=== PATIENT | male | born 1940 | race Caucasian/White ===

== ENCOUNTER 2021-09-13 11:24 | Emergency (ER) | payer MEDICARE, OTHER ==
[~2021-09-13 11:24] MED LIST: ASPIR 8181 MG PO; BROVANA15 MCG/2 M NEB; CERTAGEN1 EACH PO; COMBIVENT RESPIM4 GM NEB; GARLIC1000 MG PO; MAG-OXIDE 400M400 MG PO; PRINIVIL20 MG PO; PULMICORT0.5 MG/2 M NEB; VENTOLIN (2.5 MG/3 M INH
[2021-09-13 12:23] LABS: BASOPHIL 0.4 % (0-2); EOSINOPHIL 0.5 % (0-7); HCT 35.3 % (42.0-52.0); HGB 10.9 g/dl (13.2-18.0); LYMPHOCYTE 13.2 % (15-48); MCH 26.4 pg (25.0-31.0); MCHC 30.9 g/dL (32.0-36.0); MCV 85.5 fL (78.0-100.0); MONOCYTE 9.5 % (0-12); MPV 9.6 fL (6.0-9.5); NEUTROPHIL 75.2 % (41-80); NRBC 0; PLT 269 K/uL (150-400); RBC 4.13 M/uL (4.70-6.00); RDW 12.8 % (11.5-14.0); WBC 7.4 K/uL (4.0-10.5)
[2021-09-13 12:24] LABS: BILIRUBIN NEGATIVE (NEGATIVE); BLOOD NEGATIVE Ery/uL (NEGATIVE); CLARITY CLEAR (CLEAR); COLOR YELLOW (YELLOW); GLUCOSE (U) 1+ mg/dL (NORMAL); LEUKOCYTES NEGATIVE Leu/uL (NEGATIVE); NITRITE NEGATIVE (NEGATIVE); PROTEIN NEGATIVE (NEGATIVE); SPECIFIC GRAVITY >=1.030 (1.001-1.030); UROBILINOGEN 0.2 mg/dL (0.2-1.0); pH 5.5 (5.0-9.0)
[2021-09-13 12:39] LABS: INR 1.15 (0.9-1.2); PROTHROMBIN TIME 14.1 SECONDS (11.8-13.4); PTT 34.2 SECONDS (24.4-34.7)
[2021-09-13 12:54] LABS: ALBUMIN 2.9 g/dL (3.4-5.0); BILIRUBIN - TOTAL 0.4 mg/dL (0.2-1.0); GLOBULIN (CALCULATION) 4.5 g/dL; POTASSIUM 4.8 mmol/L (3.5-5.1); TOTAL PROTEIN 7.4 g/dL (6.4-8.2)
== END 2021-09-13 14:29 | disposition home or self-care (01) ==
LOC: FER 11:24
PROVIDERS: Emergency Medicine; Nurse Practitioner Family
DX: R10.11 Right upper quadrant pain (principal); R11.2 Nausea with vomiting, unspecified; I10 Essential (primary) hypertension; J44.9 Chronic obstructive pulmonary disease, unspecified; Z87.891 Personal history of nicotine dependence; Z79.899 Other long term (current) drug therapy
CPT/HCPCS: 36415; 80053; 81003; 82150; 83690; 85025; 85610; 85730; 99284

== ENCOUNTER → 2021-11-03 | Day surgery (SDC) | payer MEDICARE, OTHER ==
[~2021-11-03] VITALS: Ht 185.4 cm; Wt 88.0 kg
[~2021-11-03] MED LIST changes: +OMEPRAZOLE40 MG PO; +YUPELRI175 MCG/3 INH
== END | disposition home or self-care (01) ==
LOC: FAS 09:49
DX: D12.2 Benign neoplasm of ascending colon (principal); D12.0 Benign neoplasm of cecum; D12.3 Benign neoplasm of transverse colon; D12.5 Benign neoplasm of sigmoid colon; K62.1 Rectal polyp; K63.9 Disease of intestine, unspecified; D17.79 Benign lipomatous neoplasm of other sites; K57.30 Diverticulosis of large intestine without perforation or abscess without bleeding; K64.8 Other hemorrhoids; C22.9 Malignant neoplasm of liver, not specified as primary or secondary; I10 Essential (primary) hypertension; I48.91 Unspecified atrial fibrillation; J44.9 Chronic obstructive pulmonary disease, unspecified; Z79.899 Other long term (current) drug therapy; Z87.891 Personal history of nicotine dependence; Z72.89 Other problems related to lifestyle; Z80.0 Family history of malignant neoplasm of digestive organs
CPT/HCPCS: J2704; J7120